=== PATIENT | female | born 1965 | race Caucasian/White ===

== ENCOUNTER 2016-08-08 17:40 | Emergency (ER) | payer OTHER ==
[2016-08-08 17:50] VITALS: BP 120/64; PULSE 101; RESP 20; TEMP 98.1; O2SAT 96
--- NOTE | 2016-08-08 18:09 | ED PDOC ---
HPI: General Adult Time Seen by Provider: 08/08/16 18:00 Chief Complaint (Nursing): Flu-like Symptoms Chief Complaint (Provider): Flu-like Symptoms History Per: Patient History/Exam Limitations: no limitations Onset/Duration Of Symptoms: Days (x1 week) Have you had recent travel within the past 21 days to any of the following countries: [place], [place], [place] or [place]?: No Current Symptoms Are (Timing): Still Present Severity: Moderate Additional Complaint(s): Merissa Bojorquez is a 50 year old female, with a past medical history inclusive of type II diabetes (compliant with Metformin/Januvia), who presents to the ED on 08/08/16 for the evaluation of moderate flu-like symptoms that she has experienced x1 week, inclusive of fever, diffuse myalgias, sore throat (worse with speaking/swallowing), a productive cough with yellow phlegm and some cough- associated chest pain. Denies shortness of breath or hemoptysis. No known sick contacts. Has medicated with Tylenol without relief, prompting ED visit. PMD: Mahesh [place] Past Medical History Reviewed: Historical Data, Nursing Documentation, Vital Signs Vital Signs: Last Vital Signs Temp 98.1 F 08/08/16 17:47 Pulse 101 H 08/08/16 17:47 Resp 20 08/08/16 17:47 BP 120/64 08/08/16 17:47 Pulse Ox 96 08/08/16 18:12 - Medical History PMH: Diabetes (type II), Hypercholesterolemia - Surgical History Surgical History: Cholecystectomy, ( x 4) - Family History Family History: States: Unknown Family Hx - Home Medications Home Medications: Ambulatory Orders Medication Instructions Recorded Diabetic Pill PO DAILY 01/28/15 Ibuprofen 600 mg PO Q6H PRN #15 tab 01/28/15 MetFORMIN [glucOPHAGE] 1,000 mg PO BID 01/28/15 Benzonatate [Tessalon Perles] 100 mg PO BID #10 sgl 08/08/16 - Allergies Allergies/Adverse Reactions: Allergies Allergy/AdvReac Type Severity Reaction Status Date / Time No Known Allergies Allergy Verified 08/08/16 17:47 Review of Systems Constitutional: Positive for: Fever, Other (diffuse myalgias) ENT: Positive for: Throat Pain. Negative for: Ear Pain Respiratory: Positive for: Cough, Sputum (yellow phlegm). Negative for: Hemoptysis Physical Exam - Reviewed Nursing Documentation Reviewed: Yes Vital Signs Reviewed: Yes - Physical Exam Appears: Positive for: Non-toxic, No Acute Distress Head Exam: Positive for: ATRAUMATIC, NORMOCEPHALIC Skin: Positive for: Normal Color, Warm, Dry Eye Exam: Positive for: Normal appearance, PERRL ENT: Positive for: TM Is/Are (normal b/l), Pharyngeal Erythema (mild), Tonsillar Swelling (b/l w/erythema; uvula normal). Negative for: Tonsillar Exudate Cardiovascular/Chest: Positive for: Regular Rate, Rhythm. Negative for: Murmur Respiratory: Positive for: Normal Breath Sounds. Negative for: Respiratory Distress Lymphatic: Negative for: Adenopathy (no cervical lymphadenopathy) Neurologic/Psych: Positive for: Alert, Oriented - ECG O2 Sat by Pulse Oximetry: 96 (RA) Pulse Ox Interpretation: Normal Medical Decision Making Medical Decision Makin:00 Initial Impression: sore throat; will r/o strep Initial Plan: * Rapid Strep Strep(-) pt most likely with viral symptoms pt given tessalon pearles-for symptom relief. advised to have pmd f.u Scribe Attestation: Documented by Dina Avila, acting as a scribe for Vonnie Mccormick PA-C. Provider Scribe Attestation: All medical record entries made by the Scribe were at my direction and personally dictated by me. I have reviewed the chart and agree that the record accurately reflects my personal performance of the history, physical exam, medical decision making, and the department course for this patient. I have also personally directed, reviewed, and agree with the discharge instructions and disposition. Disposition - Clinical Impression Clinical Impression: Viral illness - Patient ED Disposition Is Patient to be Admitted: No Counseled Patient/Family Regarding: Need For Followup - Disposition Referrals: [facility] [Outside] Disposition: Routine/Home Disposition Time: 18:46 Condition: STABLE Prescriptions: Benzonatate [Tessalon Perles] 100 mg PO BID #10 sgl Instructions: Viral Syndrome (ED) Print Language: LEBANESE
== END 2016-08-08 19:21 | disposition home or self-care (01) ==
LOC: H.ER 17:40
DX: B34.9 Viral infection, unspecified (principal); E11.9 Type 2 diabetes mellitus without complications

== ENCOUNTER 2016-10-07 08:58 | Day surgery (SDC) | payer OTHER ==
[2016-10-07] MEDS ORDERED: Lactated Ringer's 500 ML IV ONE (12:02)
[2016-10-07] MEDS ORDERED: Propofol 10 mg/ml Inj (20 ML) ONE (12:10)
[2016-10-07 13:11] VITALS: BP 121/56; PULSE 79; RESP 14; TEMP 98.2; O2SAT 100
== END 2016-10-07 13:25 | disposition home or self-care (01) ==
LOC: H.ENDO 08:58
PROVIDERS: ATTEND Internal Medicine Gastroenterology
DX: Z12.11 Encounter for screening for malignant neoplasm of colon (principal); E11.9 Type 2 diabetes mellitus without complications; K64.8 Other hemorrhoids

== ENCOUNTER 2017-02-24 09:13 | Emergency (ER) | payer OTHER ==
[2017-02-24 09:17] VITALS: O2SAT 99
[2017-02-24 09:18] VITALS: BMI 28.7
--- NOTE | 2017-02-24 09:56 | ED PDOC ---
HPI: Eye Injury/Pain Time Seen by Provider: 02/24/17 09:23 Chief Complaint (Nursing): Eye Problem Chief Complaint (Provider): Eye problem History Per: Patient History/Exam Limitations: no limitations Onset/Duration Of Symptoms: Days (x1 week) Current Symptoms Are (Timing): Still Present Injury To Eye?: No Associated Symptoms: Swelling, Other (redness). denies: Decreased Vision, Discharge From Eye Additional Complaint(s): Merissa Bojorquez is a 51 year old female, with a past medical history of diabetes, who presents to the emergency department complaining of right eye pain to the upper eyelid associated with redness and swelling onset 1 week ago. Patient reports she went to the estate tax examiner and was given antibiotic eye drops but with no relief. Patient has been applying warm compresses once per day but with no help. Now she is starting to have redness and swelling to the left eye for the last couple of days. She denies any problems with her vision, eye discharge , eye pain, fever, cough, rash or congestion. PMD: None provided. Past Medical History Reviewed: Historical Data, Nursing Documentation, Vital Signs Vital Signs: Last Vital Signs Temp 98.8 F 02/24/17 09:16 Pulse 79 02/24/17 09:16 Resp 20 02/24/17 09:16 BP 114/85 02/24/17 09:16 Pulse Ox 99 02/24/17 09:16 - Medical History PMH: Diabetes (type II), Hypercholesterolemia - Surgical History Surgical History: Cholecystectomy, ( x 4) - Family History Family History: States: Unknown Family Hx - Social History Current smoker - smoking cessation education provided: No Alcohol: None Drugs: Denies - Home Medications Home Medications: Ambulatory Orders Medication Instructions Recorded MetFORMIN [glucOPHAGE] 1,000 mg PO BID 01/28/15 Glipizide [Glipizide ER] 1 tab PO DAILY 10/07/16 SITagliptin [Januvia] 1 tab PO DAILY 10/07/16 Clindamycin [Cleocin] 300 mg PO TID #21 cap 02/24/17 Erythromycin 0.5% [Ilytocin] 1 appl OU BID #1 tube 02/24/17 - Allergies Allergies/Adverse Reactions: Allergies Allergy/AdvReac Type Severity Reaction Status Date / Time No Known Allergies Allergy Verified 10/07/16 11:58 Review of Systems ROS Statement: Except As Marked, All Systems Reviewed And Found Negative Constitutional: Negative for: Fever Eyes: Positive for: Pain (right), Eyelid Inflammation (right & left upper eyelid ), Redness (right & left upper eyelid). Negative for: Vision Change, Other ( eye discharge ) ENT: Negative for: Nose Congestion Respiratory: Negative for: Cough Skin: Negative for: Rash Physical Exam - Reviewed Nursing Documentation Reviewed: Yes Vital Signs Reviewed: Yes - Physical Exam Appears: Positive for: Well, Non-toxic, No Acute Distress Head Exam: Positive for: ATRAUMATIC, NORMAL INSPECTION, NORMOCEPHALIC Skin: Positive for: Normal Color, Warm, Dry Eye Exam: Positive for: EOMI (bilateral), PERRL (bilateral). Negative for: Normal appearance (right upper eyelid swelling and redness. mild redness and swelling to left eye), Periorbital swelling (or swelling to right eye), Conjunctival injection, Other (No bilateral discharge or conjunctivitis ) ENT: Positive for: Normal ENT Inspection Neck: Positive for: Painless ROM, Supple Cardiovascular/Chest: Positive for: Regular Rate, Rhythm Respiratory: Negative for: Respiratory Distress Extremity: Positive for: Normal ROM Neurologic/Psych: Positive for: Alert, Oriented (x3) - ECG O2 Sat by Pulse Oximetry: 99 (RA) Pulse Ox Interpretation: Normal Medical Decision Making Medical Decision Making: Initial Impression: bilateral blepharitis vs hordeolum Initial Plan: -Patient started warm compresses several times per day. patient will be referred to estate tax examiner. Scribe Attestation: Documented by Shahbaz Martinez, acting as a scribe for Radames Abdi MD Provider Scribe Attestation: All medical record entries made by the Scribe were at my direction and personally dictated by me. I have reviewed the chart and agree that the record accurately reflects my personal performance of the history, physical exam, medical decision making, and the department course for this patient. I have also personally directed, reviewed, and agree with the discharge instructions and disposition. Disposition - Clinical Impression Clinical Impression: Hordeolum external, Blepharitis of both eyes - Patient ED Disposition Is Patient to be Admitted: No Doctor Will See Patient In The: Office Counseled Patient/Family Regarding: Studies Performed, Diagnosis, Need For Followup - Disposition Referrals: Jimenez Jay MD [Staff Provider] - Disposition: Routine/Home Disposition Time: 09:50 Condition: GOOD Additional Instructions: Take your medications as instructed. Take advil for pain. Apply warm compresses and massage eyelids with cottonswabs several times per day. Follow up with your PCP in 2-3 days. Prescriptions: Clindamycin [Cleocin] 300 mg PO TID #21 cap Erythromycin 0.5% [Ilytocin] 1 appl OU BID #1 tube Instructions: Stye (ED), Blepharitis (GEN) Print Language: CHINESE
[2017-02-24 09:58] VITALS: BP 128/78; PULSE 78; RESP 19; TEMP 97.6
== END 2017-02-24 09:59 | disposition home or self-care (01) ==
LOC: H.ER 09:13
DX: H01.009 Unspecified blepharitis unspecified eye, unspecified eyelid (principal)

== ENCOUNTER 2017-05-19 09:08 | Day surgery (SDC) | payer OTHER ==
[2017-05-19] MEDS ORDERED: Lactated Ringer's 1,000 ML IV ONE (10:05)
[2017-05-19] MEDS ORDERED: Propofol 10 mg/ml Inj (20 ML) ONE (10:24)
[2017-05-19] MEDS ORDERED: Midazolam 2 MG/2 ML VIAL ONE (10:24)
[2017-05-19 10:45] VITALS: O2SAT 99
--- NOTE | 2017-05-19 11:24 | CP.SDSHP ---
Same Day Surgery H & P - History Proposed Procedure: EGD Pre-Op Diagnosis: chronic gastritis - Previous Medical/Surgical History Cardiac: Hypertension Endocrine/Metabolic: Diabetes - Allergies Allergies: Allergies No Known Allergies Allergy (Verified 10/07/16 11:58) - Physical Exam General Appearance: No acute distress Vital Signs: Vital Signs 05/19/17 10:44 Temperature 98.1 F Pulse Rate 73 Respiratory 18 Rate Blood Pressure 140/77 O2 Sat by Pulse 99 Oximetry Mental Status: Alert & Oriented x3 Neuro: WNL Heart: WNL Lungs: WNL GI: WNL - Impression Impression: epigastric pain, r/o H. pylori Pt. Evaluated Today:Candidate for Anesthesia & Procedure: Yes - Date & Time Date: 05/19/17 Time: 11:14 Short Stay Discharge - Short Stay Discharge Admitting Diagnosis/Reason for Visit: Z12.11 Disposition: HOME/ ROUTINE Referrals: Alejandra Hutchison MD [Primary Care Provider] -
[2017-05-19 12:08] VITALS: TEMP 97
[2017-05-19 12:21] VITALS: BP 111/65; PULSE 76; RESP 18
== END 2017-05-19 12:51 | disposition home or self-care (01) ==
LOC: H.ENDO 09:08
PROVIDERS: ATTEND Internal Medicine Gastroenterology
DX: Z12.11 Encounter for screening for malignant neoplasm of colon (principal); E11.9 Type 2 diabetes mellitus without complications; I10 Essential (primary) hypertension; K64.8 Other hemorrhoids; K63.89 Other specified diseases of intestine; R10.13 Epigastric pain; K29.50 Unspecified chronic gastritis without bleeding
CPT/HCPCS: 43239; 45380; 82948; 88305; J2250; J2704; J7120